=== PATIENT | female | born 1970 | race Two or more races ===

== ENCOUNTER 2018-09-06 13:07 | Emergency (ER) | payer OTHER ==
[~2018-09-06] VITALS: Ht 167.6 cm; Wt 71.7 kg
[~2018-09-06 13:07] MED LIST: COZAAR50 MG
[2018-09-06] MEDS ORDERED: TOPROL XL25 M1 (13:40)
[2018-09-06] MEDS ORDERED: valium PO (15:42)
== END 2018-09-06 16:10 | disposition home or self-care (01) ==
LOC: ER 13:07
DX: M54.6 Pain in thoracic spine (principal)

== ENCOUNTER 2021-05-09 08:17 | Emergency (ER) | payer BC ==
[~2021-05-09] VITALS: Ht 167.6 cm; Wt 70.8 kg
[~2021-05-09 08:17] MED LIST changes: +TOPROL XL25 M1; +valium PO
== END 2021-05-09 13:38 | disposition home or self-care (01) ==
LOC: ER 08:17
DX: J06.9 Acute upper respiratory infection, unspecified (principal); B34.9 Viral infection, unspecified; E86.0 Dehydration; Z11.52 Encounter for screening for COVID-19

== ENCOUNTER 2021-05-11 10:06 | Emergency (ER) | payer OTHER ==
[~2021-05-11] VITALS: Ht 167.6 cm; Wt 70.8 kg
== END 2021-05-11 13:26 | disposition home or self-care (01) ==
LOC: ER 10:06
DX: M54.59 Other low back pain (principal); M54.2 Cervicalgia; R51.9 Headache, unspecified

== ENCOUNTER 2021-09-28 07:45 | Emergency (ER) | payer OTHER ==
[~2021-09-28] VITALS: Ht 167.6 cm; Wt 70.8 kg
== END 2021-09-28 09:56 | disposition home or self-care (01) ==
LOC: ER 07:45
DX: M75.31 Calcific tendinitis of right shoulder (principal)

== ENCOUNTER 2022-12-05 13:11 | Emergency (ER) | payer OTHER ==
[~2022-12-05] VITALS: Ht 167.6 cm; Wt 72.6 kg
== END 2022-12-05 17:36 | disposition home or self-care (01) ==
LOC: ER 13:11
DX: M54.9 Dorsalgia, unspecified (principal); I10 Essential (primary) hypertension